=== PATIENT | male | born 1945 | race Caucasian/White ===

== ENCOUNTER → 2016-12-03 | Outpatient (CLI) | payer MEDICARE, MEDICAID ==
[~2016-12-03] MED LIST: ASPI-515 PO; DILT180C53 PO; FOLI-17 PO; MELA1TAB8 PO; MULT1TAB76 PO; OMEP-110 PO; THIA100T6 PO
== END | disposition home or self-care (01) ==
LOC: PETCFH 08:09
PROVIDERS: ATTEND Radiology Radiation Oncology
DX: C44.02 Squamous cell carcinoma of skin of lip (principal); C76.0 Malignant neoplasm of head, face and neck; I10 Essential (primary) hypertension
CPT/HCPCS: 78815; A9552

== ENCOUNTER 2018-12-16 16:23 | Emergency (ER) | payer MEDICAID, MEDICARE ==
[~2018-12-16] VITALS: Ht 177.8 cm; Wt 79.5 kg
[~2018-12-16 16:23] MED LIST changes: -THIA100T6 PO; +THIA100T67 PO
--- NOTE | 2018-12-16 16:23 | NUR ---
ADRIELA from home c/o SA (OD: diphenhydramine >500mg, doxylamine succinate >500mg, ZzzQuil ~250mg) between 7034-8625 with 24oz beer ~ 0630, "I've been going through a depression"; hx/o same; PIV, 250ml NS [employer] per EMS; pt dislodged PIV when changing into gown, tearful at times but responds approp ot staff, NAD, comfort measures provided, pt in safe environment, sitter in full view; all personal belongings in bags x2 placed in locker.
[2018-12-16 16:56] LABS: BASOPHILS # (AUTO) 0.05 x10^3/uL (0-0.1); BASOPHILS % (AUTO) 1 % (0-1); EOSINOPHILS # (AUTO) 0.12 x10^3/uL (0-0.4); EOSINOPHILS % (AUTO) 2 % (1-7); LYMPHOCYTES # (AUTO) 1.37 x10^3/uL (1-3.4); LYMPHOCYTES % (AUTO) 18 % (22-44); MD NO; MEAN CORPUSCULAR HEMOGLOBIN 31.9 pg (27.5-34.5); MEAN CORPUSCULAR HGB CONC 33.8 g/dL (33.2-36.2); MEAN CORPUSCULAR VOLUME 94.4 fL (81-97); MEAN PLATELET VOLUME 7.9 fL (7.4-10.4); MONOCYTES # (AUTO) 0.51 x10^3/uL (0.2-0.8); MONOCYTES % (AUTO) 7 % (2-9); NEUTROPHILS # (AUTO) 5.61 x10^3/uL (1.8-6.8); NEUTROPHILS % (AUTO) 73 % (42-75); PLATELET COUNT 265 x10^3/uL (130-400); RED BLOOD COUNT 5.49 x10^6/uL (4.38-5.82); RED CELL DISTRIBUTION WIDTH 14.1 % (9.4-14.8)
--- NOTE | 2018-12-16 17:05 | NUR ---
pt upright on gurney awake, calm & cooperative, responds approp ot staff, NAD, comfort measures provided, pt in safe environment, sitter in full view.
[2018-12-16 17:08] LABS: ALANINE AMINOTRANSFERASE 25 U/L (12-78); ALBUMIN 4.4 g/dL (3.4-5.0); ANION GAP 8 mmol/L (5-15); CALCIUM 9.2 mg/dL (8.5-10.1); CHLORIDE 109 mmol/L (98-107); CREATININE 1.17 mg/dL (0.7-1.3); SALICYLATE LEVEL 2.8 mg/dL (2.8-20.0)
[2018-12-16 17:10] LABS: ALKALINE PHOSPHATASE 124 U/L (45-117); BILIRUBIN,TOTAL 0.8 mg/dL (0.2-1.0); TOTAL PROTEIN 8.1 g/dL (6.4-8.2)
[2018-12-16 17:12] LABS: ACETAMINOPHEN < 2 mcg/mL (10-30)
--- NOTE | 2018-12-16 17:40 | NUR ---
report given to Miracle MCQUEEN
--- NOTE | 2018-12-16 17:49 | NUR ---
Report from Cat Cruz RN. Patient resting in [facility]. Sitter at bedside.
[2018-12-16 18:16] LABS: AMPHETAMINE SCREEN, URINE Negative (Negative); BARBITURATE SCREEN, URINE Negative (Negative); BENZODIAZEPINE SCREEN, URINE Negative (Negative); CANNABINOID SCREEN, URINE Negative (Negative); COCAINE SCREEN, URINE Negative (Negative); METHADONE SCREEN, URINE Negative (Negative); OPIATE SCREEN, URINE Negative (Negative)
--- NOTE | 2018-12-16 18:33 | NUR ---
Attempted to ambulate patient to the restroom to void, but patient was too unsteady to walk. Provided with urinal. Provided with pillow, blanket, and meal tray. Sitter at bedside.
[2018-12-16 19:48] VITALS: BP 150/95
--- NOTE | 2018-12-16 19:48 | NUR ---
U/O = 300 via urinal. No other needs. VSS.
--- NOTE | 2018-12-16 20:03 | NUR ---
THROUGHPUT RN: PACKET FAXED TO [facility], JESSI GARC[facility], [facility]
--- NOTE | 2018-12-16 20:27 | NUR ---
Resting in [facility]. No other needs.
== END 2018-12-17 05:44 | disposition other institution (70) ==
LOC: ED 18:10 → EDIP 20:08 → UNDOADMIN 20:08 → ED 12-17 05:44
DX: R45.851 Suicidal ideations (principal); I10 Essential (primary) hypertension; F32.9 Major depressive disorder, single episode, unspecified
CPT/HCPCS: 36415; 80053; 80307; 80329; 85025; 93005; 99284; G0480